=== PATIENT | female | born 1995 | race African-American/Black ===

== ENCOUNTER 2022-05-23 19:31 | Emergency (ER) | payer MEDICAID ==
[~2022-05-23] VITALS: Ht 160 cm; Wt 65.0 kg
[~2022-05-23 19:31] MED LIST: ALBU0.084 NEB; PREN-96 PO
[2022-05-23 19:37] VITALS: BP 133/76
[2022-05-23] MEDS ORDERED: KETOROLAC TROMETH 30 MG/ML 1ML VIAL IV ONE (19:45)
[2022-05-23] MEDS ORDERED: fentaNYL CITRATE 100 MCG/2 ML VL IV ONE (19:45)
[2022-05-23] MEDS ORDERED: IBUP200C14 PO (22:34)
[2022-05-23] MEDS ORDERED: HYDR-4798 PO (22:34)
== END 2022-05-23 23:05 | disposition home or self-care (01) ==
LOC: ER 19:32
DX: S09.8XXA Other specified injuries of head, initial encounter (principal); G93.0 Cerebral cysts; M51.86 Other intervertebral disc disorders, lumbar region; V43.52XA Car driver injured in collision with other type car in traffic accident, initial encounter; Y93.89 Activity, other specified; Y92.488 Other paved roadways as the place of occurrence of the external cause; Y99.8 Other external cause status
CPT/HCPCS: 70450; 71260; 72125; 72128; 72131; 74177; 99285; Q9967